=== PATIENT | male | born 1985 | race Hispanic/Latino ===

== ENCOUNTER 2016-09-08 23:53 | Emergency (ER) | payer OTHER ==
[~2016-09-08] VITALS: Ht 170.2 cm; Wt 106.4 kg
[~2016-09-08 23:53] MED LIST: HYDR-4003 PO; PENI500T PO
[2016-09-08 23:56] VITALS: BP 141/89; PULSE 91; RESP 16; O2SAT 97
--- NOTE | 2016-09-09 00:05 | ED.REPORT ---
HPI-Dental/Mouth Prob Date of Service Sep 09, 2016 ED Provider: Adonay Disla DO A 31 year old male with no pertinent medical history presents to the ED complaining of left upper tooth pain. The pt was seen in Urgent Care three days ago and prescribed penicillin and Naproxen. The pain has not improved since and he is now experiencing left facial swelling. Nursing Notes Stated Complaint: DENTAL PAIN Chief Complaint: Dental Nursing Notes Reviewed: Yes Allergies: Coded Allergies: No Known Allergies (Verified Allergy, Unknown, 11/23/14) Scheduled Penicillin V Potassium (Penicillin V Potassium) 500 Mg Tablet 500 MG PO QID Scheduled PRN Hydrocodone-Acetaminophen 5-325 mg (Hydrocodone-Acetaminophen 5-325 mg) 1 Each Tablet 1-2 TABLET PO Q4H PRN PRN For Pain General Time Seen by MD: 00:04 Chief Complaint Tooth pain Hx Obtained From: Patient Arrived By: Walk-in Onset Occurred: 3 days ago Symptom Duration: Since onset Recent Healthcare: No recent hospitalization, Recent doctor visit Similar Sx Previous: No Past Medical History Past Medical History none reported Past Surgical History none reported Smoking History Smoker Current Status UNK Social History Alcohol Use: Denies alcohol use Drug Use: Meth Other Social History: Local resident Ambulatory Status Independent Review of Systems Review of Systems Note: left facial swelling Constitutional: Denies: Fever Ears / Nose / Throat: Reports: Toothache (upper left) Respiratory: Denies: Non-productive cough, Shortness of breath GI: Denies: Abdominal pain, Vomiting Complete sys rev & neg: except as marked. Physical Exam Initial Vital Signs Vital Signs (First) Date Time Temp Pulse Resp B/P Pulse Ox O2 Delivery O2 Flow Rate FiO2 09/08/16 23:56 36.1 91 16 141/89 97 Room Air Initial VS: Reviewed ENT: Atraumatic, Airway patent, Mucous membranes moist multiple carious teeth purulent drainage from first left upper molar moderate left-sided facial puffiness Neck: Atraumatic, Supple, Full range of motion General/Constitutional: Awake, Alert Head / Eyes: Atraumatic, Normocephalic, PERRL, EOMI Respiratory / Chest: Atraumatic, Breath sounds NL, Breath sounds = bilat, No respiratory distress Cardiovascular: Heart rate NL, Regular rhythm, Heart sounds NL Neurologic: Oriented X3, Speech NL, No motor deficits, No sensory deficits Abdomen: Atraumatic, Soft, Non-tender Back: Atraumatic, Full range of motion Upper Extremity / MS: Atraumatic, Full range of motion Lower Extremity / Pelvis / MS: Atraumatic, Full range of motion Skin: Atraumatic, Color NL, No rash, Warm, Dry Psychiatric: Affect NL, Mood NL Interpretation & Diagnostics Pulse Oximetry Interpretation Pulse Oximetry Interpretation: 97% on room air Pulse Oximetry: Pulse Ox normal Procedures Incision & Drainage Abscess Time: 00:17 Procedure Performed by: ED physician Location of Abscess: left upper molar Local Anesthesia: Lidocaine w epi 1% Incised Abscess with Scalpel: #11 Pus Drained: Purulent discharge (moderate amount) Post-Procedure / Complications: No complications, Condition improved, Tolerated procedure well, Patient stable Re-Eval/Medical Decision Med Decision/Clinical Course The left periapical dental abscess was carefully incised. I was very cautious to avoid the salivary gland ducts in the deep structures of the face. The facial swelling had resolved after the pus drained. He felt much better. There was no stridor or trismus or drooling. I do not feel that CT scan was going to add anything because he now has the abscess drained and is going to be on appropriate antibiotics. He received IV Unasyn. He will be placed on Augmentin. I strongly encouraged dental follow-up. He will come back tomorrow and see me if he has any problems. Short course of Percocet with routine opiate warnings was provided. He was discharged in stable condition looking and feeling much better Source of Hx: Old records Re-Evaluation/Progress #1: Time of Eval: 00:17 Patient Status: Condition improved Re-Evaluation/Progress Note: Pt rechecked and I&D is performed. Pt tolerated the procedure well and there were no complications. Re-Evaluation/Progress #2: Time of Eval: 01:34 Patient Status: Condition improved Re-Evaluation/Progress Note: Pt rechecked, who is feeling significantly better. The diagnosis and plan for discharge are discussed. The pt understands and agrees with the plan. All questions are addressed at this time. Counseled Regarding: Diagnosis, Need for follow-up, When/why to return to ED Discharge & Departure Primary Impression: Dental abscess Disposition: Home Discharge Condition All VS Reviewed: Yes Condition: Stable Patient Instructions: Dental Abscess (ED), Dental Caries (ED) Additional Instructions: Take Augmentin twice daily for 7 days. Take 1-2 Percocet every 6 hours as needed for severe pain. Do not drive, drink alcohol, or consume acetaminophen while taking the Percocet. Follow up with a dentist next week for follow up. Call in the morning to arrange this appointment. Return to the emergency room if you develop any new or worsening symptoms. Referrals: [facility] Attestation Portions of this note were transcribed by Patricia Parra. I, Dr. Disla personally performed the history, physical exam and medical decision-making; I reviewed and confirmed the accuracy of the information in the transcribed note. Signed by: Cate Bruce, 09/09/2016 and 0136. copies to: [facility] Adonay Disla DO Sep 09, 2016 00:05 PATRICIA PARRA Sep 09, 2016 00:17
[2016-09-09] MEDS ORDERED: Lidocaine 1%-Epi 1:100,000 50 mL Inj NERVEBLOCK ONE (00:15)
[2016-09-09] MEDS ORDERED: _oxyCODONE/APAP 5-325 mg Tablet PO PRN (00:15)
[2016-09-09] MEDS ORDERED: oxyCODONE-Acetamin 5-325 mg Tablet PO ONE (00:15)
[2016-09-09] MEDS ORDERED: Lidocaine 1%-Epi 1:100,000 20 mL Inj ONE (00:16)
[2016-09-09] MEDS ORDERED: Lidocaine 1%-Epi 1:100,000 20 mL Inj NERVEBLOCK ONE (00:20)
[2016-09-09] MEDS ORDERED: Ampicillin-Sulbactam Inj 3,000 MG in 0.9% Sodium Chloride 100 ML IV ONE (00:30)
[2016-09-09] MEDS ORDERED: Dexamethasone Inj 20 MG in 0.9% Sodium Chloride-Pha MIX 50 ML IV ONE (00:30)
[2016-09-09 02:31] VITALS: BP 133/101; PULSE 74; RESP 17; O2SAT 95
== END 2016-09-09 02:08 | disposition home or self-care (01) ==
LOC: SED 23:53
DX: K04.7 Periapical abscess without sinus (principal)
CPT/HCPCS: 41800; 96365; 96375; 99284; J0295; J1100